=== PATIENT | female | born 1990 | race Caucasian/White ===

== ENCOUNTER 2016-09-07 16:38 | Emergency (ER) | payer MEDICAID ==
[~2016-09-07] VITALS: Ht 154.9 cm; Wt 70.3 kg
[~2016-09-07 16:38] MED LIST: ACET-2869 PO; ACET1TAB93 PO
[2016-09-07] MEDS ORDERED: ONDANSETRON 4 MG/2 ML VIAL IVP ONE (16:50)
[2016-09-07] MEDS ORDERED: NACL 0.9% 1,000 ML IV SCH (16:50)
[2016-09-07 16:54] VITALS: BP 132/99
--- NOTE | 2016-09-07 16:54 | NUR ---
PT PRESENTS TO ER FOR EVALUATION OF LOWER ABDOMINAL PAIN R/T INCISION, S/P 08/16/16. PT ALSO C/O SOB AND LOWER ABDOMEN TUGGING. DENIES N/V/D; SKIN IS PINK/WARM/DRY; AAOX4 WITH EVEN AND STEADY GAIT; LUNGS CLEAR BL; HR EVEN AND REGULAR; PATIENT STATES PAIN OF 8/10 AT THIS TIME; VSS; PATIENT POSITIONED FOR COMFORT; HOB ELEVATED; BEDRAILS UP X2; BED DOWN. ER MD MADE AWARE OF PT STATUS.
--- NOTE | 2016-09-07 17:05 | NUR ---
INSERTED IV CATH NO 20G LAC . PT TOLERATED PROCEDURE WELL/. IV PATENT/INTACT.
[2016-09-07 17:09] LABS: BASOPHILS # (AUTO) 0.2 K/uL (0.00-0.22); BASOPHILS % (AUTO) 1.7 % (0.0-2.0); EOSINOPHILS # (AUTO) 0.4 K/uL (0-0.4); EOSINOPHILS % (AUTO) 3.8 % (0.0-4.0); HEMATOCRIT 41.4 % (36-48); HEMOGLOBIN 13.1 g/dL (12.0-16.0); LYMPHOCYTES # (AUTO) 2.5 K/uL (2.5-16.5); LYMPHOCYTES % (AUTO) 26.1 % (20.5-51.1); MEAN CORPUSCULAR HEMOGLOBIN 26 pg (27-31); MEAN CORPUSCULAR HGB CONC 32 g/dL (33-37); MEAN CORPUSCULAR VOLUME 82 fL (80-94); MONOCYTES # (AUTO) 0.5 K/uL (0.8-1.0); MONOCYTES % (AUTO) 5.1 % (1.7-9.3); NEUTROPHILS # (AUTO) 6.1 K/uL (1.8-7.7); NEUTROPHILS % (AUTO) 63.3 % (42.2-75.2); PLATELET COUNT (AUTO) 410 K/uL (140-450); RED BLOOD CELL COUNT(AUTO) 5.04 MIL/uL (4.20-5.40); RED CELL DISTRIBUTION WIDTH 13.7 % (11.6-13.7); WHITE BLOOD COUNT (AUTO) 9.7 K/uL (4.8-10.8)
[2016-09-07 17:20] LABS: ANION GAP 14.4 (8-16); CALCIUM 8.9 mg/dL (8.5-10.1); CREATININE 0.8 mg/dL (0.6-1.3); POTASSIUM 4.4 mmol/L (3.5-5.1)
[2016-09-07 17:25] LABS: ALBUMIN 3.5 g/dL (3.4-5.0); TOTAL BILIRUBIN 0.2 mg/dL (0.0-1.0); TOTAL PROTEIN, SERUM 7.9 g/dL (6.4-8.2)
[2016-09-07] MEDS ORDERED: HYDROmorphone 1 MG/ML AMP IVP ONE (18:10)
--- NOTE | 2016-09-07 18:10 | NUR ---
PT C/O ABD PAIN 09/15 ; NOTIFIED ER MD DR MEDINA. DILAUDID 1MG IV ORDERED.
--- NOTE | 2016-09-07 18:15 | NUR ---
ADMINISTERED DILAUDID 1MG IV LAC FOR PAIN.
--- NOTE | 2016-09-07 18:18 | NUR ---
PT STATED STAPLE C SECTION SURGERY HAVE TO REMOVE08/20/16 BUT PT DID NOT CAME TO [facility] TO REMOVE STAPLE.
--- NOTE | 2016-09-07 18:30 | NUR ---
ABDOMINAL PAIN 3/10
[2016-09-07 18:31] LABS: APPEARANCE,URINE CLEAR (CLEAR); BLOOD, URINE NEGATIVE (NEGATIVE); COLOR,URINE YELLOW (YELLOW); LEUKOCYTE ESTERASE ,URINE NEGATIVE (NEGATIVE); NITRITE, URINE NEGATIVE (NEGATIVE); PROTEIN,URINE TRACE (NEGATIVE); UGLUCOSE NEGATIVE (NEGATIVE); UROBILINOGEN,URINE 0.2 EU/dL (0.2 - 1)
[2016-09-07 18:32] LABS: BILIRUBIN,URINE NEGATIVE (NEGATIVE)
[2016-09-07 18:34] LABS: BACTERIA,URINE FEW /HPF (None Seen); MUCUS,URINE 3+ /LPF (None Seen); RBC,URINE 0-3 /HPF (0-5); WBC,URINE 0-3 /HPF (0-5)
--- NOTE | 2016-09-07 18:45 | NUR ---
ER MD DR MEDINA REEVALUATING PT AT BEDSIDE.
--- NOTE | 2016-09-07 18:51 | NUR ---
WOUND CARE DONE BY JUANIS RANGEL.
--- NOTE | 2016-09-07 18:52 | NUR ---
IV removed, catheter intact and site benign. Applied folded 4x4 gauze and tape to stop bleeding.
[2016-09-07] MEDS ORDERED: BACITRACIN OINT 500 UNITS/GM PKT TP ONE (18:57)
[2016-09-07 19:06] VITALS: BP 102/90
--- NOTE | 2016-09-07 19:06 | NUR ---
Patient discharged with v/s stable. Written and verbal after care instructions given and explained. Patient alert, oriented and verbalized understanding of instructions. Ambulatory with steady gait. All questions addressed prior to discharge. ID band removed. Patient advised to follow up with PMD. Rx of KEFLEX & NORCO given. Patient educated on indication of medication including possible reaction and side effects. Opportunity to ask questions provided and answered.
--- NOTE | 2016-09-11 11:18 | NUR ---
MAX; STATRED IV 0.9 NSS 100ML WIDE OPEN AT 17.04 PM 09/07/16. END IV 0.9% NSS 1000 ML AT 1850 PM. 09/07/16
== END 2016-09-07 19:06 | disposition home or self-care (01) ==
LOC: MED 16:38
DX: O90.89 Other complications of the puerperium, not elsewhere classified (principal); T81.89XA Other complications of procedures, not elsewhere classified, initial encounter; L03.311 Cellulitis of abdominal wall; Z88.1 Allergy status to other antibiotic agents
CPT/HCPCS: 36415; 76700; 80053; 81001; 81025; 82150; 83690; 85025; 96361; 96374; 96375; 99285; J1170; J2405; J7030; Q0092

== ENCOUNTER 2017-02-13 22:44 | Emergency (ER) | payer OTHER ==
[~2017-02-13] VITALS: Ht 157.5 cm; Wt 69.4 kg
[~2017-02-13 22:44] MED LIST changes: +BUPR8TAB3 SL
[2017-02-13 22:48] VITALS: BP 139/82
--- NOTE | 2017-02-13 23:05 | NUR ---
PT TAKEN TO BED 7
--- NOTE | 2017-02-13 23:05 | NUR ---
Dr. Rendon evaluating patient at bedside.
--- NOTE | 2017-02-13 23:06 | NUR ---
PATIENT IS A 26 Y/O FEMALE WHO PRESENTS TO THE ED C/O DIZZINESS AND HEADACHE. PT STATES, "I HAVEN'T BEEN FEELING GOOD RECENTLY AND MY HEAD HURTS." PT REPORTS 6/10 SHARP HEADACHE PAIN THAT DOES NOT RADIATE. PT DENIES CP, REPORTS SOB, LUNG SOUNDS CLEAR BL, REPORTS NAUSEA DENIES VOMITING/DIARRHEA. PT AAOX4, RR EVEN/UNLABORED. PT REPOSITIONED FOR COMFORT, BED IN LOWEST POSITION. ER MD VILLAGRAN SECIST NOTIFIED. WILL CONTINUE TO MONITOR.
[2017-02-13] MEDS ORDERED: ACETAMINOPHEN EXTRA STRENGTH 500 MG TAB PO ONE (23:15)
[2017-02-13] MEDS ORDERED: METOCLOPRAMIDE 10 MG/2 ML INJ VIAL IVP ONE (23:15)
[2017-02-13] MEDS ORDERED: NACL 0.9% 1,000 ML IV ONE (23:15)
--- NOTE | 2017-02-13 23:26 | NUR ---
PT TAKEN TO CT
--- NOTE | 2017-02-13 23:34 | NUR ---
PT RETURN FROM CT
--- NOTE | 2017-02-14 00:21 | NUR ---
Ultrasound at bedside.
[2017-02-14 00:25] LABS: HEMATOCRIT 30.1 % (36-48); HEMOGLOBIN 9.8 g/dL (12.0-16.0); MEAN CORPUSCULAR HEMOGLOBIN 27 pg (27-31); MEAN CORPUSCULAR HGB CONC 33 g/dL (33-37); MEAN CORPUSCULAR VOLUME 82 fL (80-94); PLATELET COUNT (AUTO) 185 K/uL (140-450); RED BLOOD CELL COUNT(AUTO) 3.65 MIL/uL (4.20-5.40); RED CELL DISTRIBUTION WIDTH 14.5 % (11.6-13.7); WHITE BLOOD COUNT (AUTO) 6.8 K/uL (4.8-10.8)
[2017-02-14 00:27] LABS: EOSINOPHILS % (MANUAL) 5 % (0-4); LYMPHOCYTES % (MANUAL) 35 % (20-46); MONOCYTES % (MANUAL) 6 % (5-12)
[2017-02-14 00:29] LABS: ANION GAP 9.5 (8-16); CARBON DIOXIDE 25.2 mmol/L (21-32); CREATININE 0.6 mg/dL (0.6-1.3); POTASSIUM 3.7 mmol/L (3.5-5.1)
[2017-02-14 00:34] LABS: ALBUMIN 2.9 g/dL (3.4-5.0); TOTAL BILIRUBIN 0.1 mg/dL (0.0-1.0)
[2017-02-14 01:02] LABS: BILIRUBIN,URINE NEGATIVE (NEGATIVE); BLOOD, URINE NEGATIVE (NEGATIVE); COLOR,URINE YELLOW (YELLOW); LEUKOCYTE ESTERASE ,URINE NEGATIVE (NEGATIVE); NITRITE, URINE NEGATIVE (NEGATIVE); UGLUCOSE NEGATIVE (NEGATIVE)
[2017-02-14 01:07] LABS: APPEARANCE,URINE SLIGHTLY HAZY (CLEAR)
[2017-02-14 01:11] LABS: BARBITURATE, URINE NEGATIVE ng/ml (NEG <=200); BENZODIAZEPINE, URINE NEGATIVE ng/mL (NEG <=200); CANNABINOID, URINE NEGATIVE ng/mL (NEG <=50); COCAINE, URINE NEGATIVE ng/mL (NEG <=300); OPIATE, URINE NEGATIVE ng/mL (NEG <=2000); PHENCYCLIDINE SCREEN,URINE NEGATIVE ng/mL (NEG <=25)
[2017-02-14 01:14] LABS: RBC,URINE 0-5 (RARE) /HPF (0-5); WBC,URINE 0-5 (RARE) /HPF (0-5)
--- NOTE | 2017-02-14 01:30 | NUR ---
PATIENT RESTING AT THIS TIME. NO SIGNS OF DISTRESS.
--- NOTE | 2017-02-14 01:45 | NUR ---
IV removed, catheter intact and site benign. Applied folded 4x4 gauze and tape to stop bleeding.
[2017-02-14 01:58] VITALS: BP 129/85
--- NOTE | 2017-02-14 01:58 | NUR ---
Patient discharged with v/s stable. Written and verbal after care instructions given and explained. Patient verbalized understanding. Ambulatory with steady gait. All questions addressed prior to discharge. Advised to follow up with PMD.
== END 2017-02-14 01:58 | disposition home or self-care (01) ==
LOC: MED 22:44
DX: O99.011 Anemia complicating pregnancy, first trimester (principal); D64.9 Anemia, unspecified; Z3A.09 9 weeks gestation of pregnancy; F17.200 Nicotine dependence, unspecified, uncomplicated; Z88.8 Allergy status to other drugs, medicaments and biological substances
CPT/HCPCS: 36415; 70450; 76801; 80053; 80305; 81001; 81025; 83690; 84702; 85025; 86900; 86901; 96360; 99285; J7030; Q0092; J2765

== ENCOUNTER 2017-02-21 19:08 | Emergency (ER) | payer OTHER ==
[~2017-02-21] VITALS: Ht 157.5 cm; Wt 81.6 kg
[2017-02-21 19:30] VITALS: BP 119/51
--- NOTE | 2017-02-21 19:41 | NUR ---
PT TAKEN TO BED 12
--- NOTE | 2017-02-21 19:42 | NUR ---
26/F CAME IN WITH C/O 10/10 HEADACHE, CONSTANT X 2 WEEKS[address] PT STATES HEAD CT WAS DONE FROM ER FEW WEEKS AGO AND IT WAS NEGATIVE. DENIES TRAUMA/INJURY, DENIES N/V, VISUAL DISTURBANCES, DENIES FEVER/CHILLS, SOB/COUGH, CHEST PAIN. STATES SHE IS 10 WEEKS , NO OBGYN. PT REPORTS SHE TOOK EXCEDRIN AND TYLENOL FOR HEADACHE BUT NO RELIEF OF SYMPTOMS.
[2017-02-21 20:50] LABS: APPEARANCE,URINE HAZY (CLEAR); BILIRUBIN,URINE NEGATIVE (NEGATIVE); BLOOD, URINE NEGATIVE (NEGATIVE); COLOR,URINE YELLOW (YELLOW); LEUKOCYTE ESTERASE ,URINE NEGATIVE (NEGATIVE); NITRITE, URINE NEGATIVE (NEGATIVE); PH,URINE 7.5 (5.0-9.0); UGLUCOSE NEGATIVE (NEGATIVE)
--- NOTE | 2017-02-21 21:07 | NUR ---
PATIENT ELOPED FROM FACILITY. DISCHARGE INSTRUCTIONS NOT GIVEN TO PATIENT. DR. BARNES NOTIFIED.
[2017-02-21 21:12] LABS: RBC,URINE NONE SEEN /HPF (0-5); WBC,URINE 0-5 (RARE) /HPF (0-5)
== END 2017-02-21 21:07 | disposition left against medical advice (07) ==
LOC: MED 19:08
DX: O26.891 Other specified pregnancy related conditions, first trimester (principal); R51 Headache; Z53.21 Procedure and treatment not carried out due to patient leaving prior to being seen by health care provider; Z3A.10 10 weeks gestation of pregnancy
CPT/HCPCS: 81001; 99281

== ENCOUNTER 2017-03-11 13:31 | Emergency (ER) | payer OTHER ==
[~2017-03-11] VITALS: Ht 157.5 cm; Wt 69.9 kg
[2017-03-11 13:55] VITALS: BP 122/66
--- NOTE | 2017-03-11 14:02 | NUR ---
UA SPECIMEN COLLECTED. PT SENT BACK INTO LOBBY TO WAIT FOR BED.
--- NOTE | 2017-03-11 17:36 | NUR ---
PATIENT LEFT WITHOUT BEING SEEN BY DR. PITTS. NO FURTHER CARE PROVIDED FOR PATIENT.
== END 2017-03-11 17:36 | disposition left against medical advice (07) ==
LOC: MED 13:31
DX: Z53.21 Procedure and treatment not carried out due to patient leaving prior to being seen by health care provider (principal)

== ENCOUNTER 2017-03-26 12:16 | Emergency (ER) | payer MEDICAID, OTHER ==
[~2017-03-26] VITALS: Ht 152.4 cm; Wt 74.8 kg
[2017-03-26 12:28] VITALS: BP 116/64
--- NOTE | 2017-03-26 12:39 | NUR ---
PT TAKEN TO BED 3.
--- NOTE | 2017-03-26 12:47 | NUR ---
26F BIB SELF C/O INTERMITTENT CHEST PAIN "ALL OVER" CHEST, RADIATES TO BL ARMS, BUT MORE TO LEFT ARM, PRESSURE, 2/10 X 4 WEEKS. PT STATES WAS "JUST RESTING" WHEN CHEST PAIN STARTED. PT STATES HAS BEEN SEEN BY ER'S AND PMD THIS MONTH, BUT TOLD TO FOLLOW UP WITH LANGUAGE INTERPRETER. PT AA&OX4, PERRLA, BL LUNG SOUNDS CLEAR, RR EVEN/UNLABORED, SKIN IS WARM/DRY/INTACT; PT STATES NO N/V/D AT THIS TIME; PT STATES 15 WEEKS AT THIS TIME A1. PT PLACED ON MONITOR, RESTING IN BED WITH HOB ELEVATED AND IN LOWEST POSITION; POSITIONED FOR COMFORT; ER MD MADE AWARE OF STATUS. WILL CONTINUE TO MONITOR.
--- NOTE | 2017-03-26 12:56 | NUR ---
ER MD DR. BARNES EVALUATING PT AT BEDSIDE.
--- NOTE | 2017-03-26 13:28 | NUR ---
Pt moved to bed 12.
[2017-03-26 13:32] LABS: BASOPHILS # (AUTO) 0.1 K/uL (0.00-0.22); BASOPHILS % (AUTO) 1.8 % (0.0-2.0); EOSINOPHILS # (AUTO) 0.2 K/uL (0-0.4); EOSINOPHILS % (AUTO) 3.1 % (0.0-4.0); HEMATOCRIT 29.3 % (36-48); HEMOGLOBIN 9.4 g/dL (12.0-16.0); LYMPHOCYTES # (AUTO) 2.1 K/uL (2.5-16.5); LYMPHOCYTES % (AUTO) 29.6 % (20.5-51.1); MEAN CORPUSCULAR HEMOGLOBIN 27 pg (27-31); MEAN CORPUSCULAR HGB CONC 32 g/dL (33-37); MEAN CORPUSCULAR VOLUME 83 fL (80-94); MONOCYTES # (AUTO) 0.4 K/uL (0.8-1.0); MONOCYTES % (AUTO) 5.5 % (1.7-9.3); NEUTROPHILS # (AUTO) 4.1 K/uL (1.8-7.7); PLATELET COUNT (AUTO) 208 K/uL (140-450); RED BLOOD CELL COUNT(AUTO) 3.54 MIL/uL (4.20-5.40); RED CELL DISTRIBUTION WIDTH 14.8 % (11.6-13.7); WHITE BLOOD COUNT (AUTO) 6.9 K/uL (4.8-10.8)
[2017-03-26 14:03] LABS: PROTHROMBIN TIME 9.5 secs (10.8-13.4)
[2017-03-26 14:07] LABS: ALBUMIN 2.7 g/dL (3.4-5.0); ANION GAP 14.1 (8-16); CARBON DIOXIDE 26.4 mmol/L (21-32); CREATININE 0.5 mg/dL (0.6-1.3); POTASSIUM 4.5 mmol/L (3.5-5.1); TOTAL BILIRUBIN 0.1 mg/dL (0.0-1.0)
[2017-03-26] MEDS ORDERED: LORazepam 1 MG TAB PO ONE (14:45)
[2017-03-26 15:23] LABS: BARBITURATE, URINE NEG. ng/ml (NEG <=200); BENZODIAZEPINE, URINE NEG. ng/mL (NEG <=200); CANNABINOID, URINE NEG. ng/mL (NEG <=50); COCAINE, URINE NEG. ng/mL (NEG <=300); OPIATE, URINE NEG. ng/mL (NEG <=2000); PHENCYCLIDINE SCREEN,URINE NEG. ng/mL (NEG <=25)
[2017-03-26 15:30] VITALS: BP 98/39
--- NOTE | 2017-03-26 15:30 | NUR ---
pt stated " if don't order CT, I WILL NOT SIGN ANTTHING AND I WILL LEAVE NOW. PATIENT ELOPED FROM FACILITY. DISCHARGE INSTRUCTIONS NOT GIVEN TO PATIENT. NOTIFIED. Addendum: 03/26/17 at 1539 by [facility] PT DENIES PAIN AT THIS TIME.
== END 2017-03-26 15:30 | disposition left against medical advice (07) ==
LOC: MED 12:16
DX: O26.892 Other specified pregnancy related conditions, second trimester (principal); R07.9 Chest pain, unspecified; F17.200 Nicotine dependence, unspecified, uncomplicated; Z88.8 Allergy status to other drugs, medicaments and biological substances; Z3A.15 15 weeks gestation of pregnancy
CPT/HCPCS: 36415; 71045; 80053; 80305; 81025; 82550; 84484; 85025; 85379; 85610; 85651; 85730; 86140; 99285; Q0092

== ENCOUNTER 2017-07-27 00:30 | Emergency (ER) | payer MEDICAID ==
[~2017-07-27] VITALS: Ht 160 cm; Wt 90.8 kg
[2017-07-27 00:35] VITALS: BP 121/69
[2017-07-27] MEDS ORDERED: ACETAMINOPHEN EXTRA STRENGTH 500 MG TAB PO ONE (01:20)
[2017-07-27 03:00] VITALS: BP 101/53
== END 2017-07-27 03:00 | disposition home or self-care (01) ==
LOC: MED 00:30
DX: O26.893 Other specified pregnancy related conditions, third trimester (principal); R51 Headache; R42 Dizziness and giddiness; Z79.899 Other long term (current) drug therapy; Z88.8 Allergy status to other drugs, medicaments and biological substances
CPT/HCPCS: 70450; 99284

== ENCOUNTER 2017-09-24 03:55 | Inpatient (IN) | payer MEDICAID, OTHER ==
[~2017-09-24] VITALS: Ht 154.9 cm; Wt 86.2 kg
--- NOTE | 2017-09-24 04:05 | NUR ---
PT AMBULATED TO BED 8
[2017-09-24 04:10] VITALS: BP 140/81
--- NOTE | 2017-09-24 04:16 | NUR ---
Dr. Carey evaluating patient at bedside.
--- NOTE | 2017-09-24 04:20 | NUR ---
PT SENT TO L&D FOR EVAL PER MD LYNN.
[2017-09-24] MEDS ORDERED: ACETAMINOPHEN EXTRA STRENGTH 500 MG TAB PO ONE (04:25)
[2017-09-24 04:57] LABS: APPEARANCE,URINE CLEAR (CLEAR); BILIRUBIN,URINE NEGATIVE (NEGATIVE); BLOOD, URINE NEGATIVE (NEGATIVE); COLOR,URINE YELLOW (YELLOW); UGLUCOSE NEGATIVE (NEGATIVE)
[2017-09-24 04:58] LABS: LEUKOCYTE ESTERASE ,URINE NEGATIVE (NEGATIVE); NITRITE, URINE NEGATIVE (NEGATIVE)
[2017-09-24] MEDS ORDERED: LACTATED RINGERS 1,000 ML IV SCH (05:01)
[2017-09-24] MEDS ORDERED: CITRIC ACID/SODIUM CITRATE 30 ML UDC PO ONE (05:05)
--- NOTE | 2017-09-24 05:10 | NUR ---
PT WILL NOT RETURN TO ER...PT WAS ADMITTED TO L&D.
[2017-09-24 06:13] LABS: BASOPHILS % (AUTO) 0.3 % (0.0-2.0); EOSINOPHILS # (AUTO) 0.1 K/uL (0-0.4); EOSINOPHILS % (AUTO) 1.1 % (0.0-4.0); HEMATOCRIT 36.5 % (36-48); HEMOGLOBIN 11.6 g/dL (12.0-16.0); LYMPHOCYTES # (AUTO) 2.5 K/uL (2.5-16.5); LYMPHOCYTES % (AUTO) 20.7 % (20.5-51.1); MEAN CORPUSCULAR HEMOGLOBIN 26 pg (27-31); MEAN CORPUSCULAR HGB CONC 32 g/dL (33-37); MEAN CORPUSCULAR VOLUME 81.3 fL (80-94); MONOCYTES # (AUTO) 0.7 K/uL (0.8-1.0); MONOCYTES % (AUTO) 5.9 % (1.7-9.3); NEUTROPHILS # (AUTO) 8.5 K/uL (1.8-7.7); PLATELET COUNT (AUTO) 238 K/uL (140-450); RED BLOOD CELL COUNT(AUTO) 4.49 MIL/uL (4.20-5.40); RED CELL DISTRIBUTION WIDTH 15.6 % (11.6-13.7); WHITE BLOOD COUNT (AUTO) 11.8 K/uL (4.8-10.8)
[2017-09-24 06:28] VITALS: BP 125/76
[2017-09-24] MEDS ORDERED: HYDR12.516 PO (06:37)
[2017-09-24 06:40] LABS: BARBITURATE, URINE NEGATIVE ng/ml (NEG <=200); BENZODIAZEPINE, URINE NEGATIVE ng/mL (NEG <=200); CANNABINOID, URINE NEGATIVE ng/mL (NEG <=50); COCAINE, URINE NEGATIVE ng/mL (NEG <=300); OPIATE, URINE NEGATIVE ng/mL (NEG <=2000); PHENCYCLIDINE SCREEN,URINE NEGATIVE ng/mL (NEG <=25)
[2017-09-24] MEDS ORDERED: PREN-546 PO (06:45)
[2017-09-24] MEDS ORDERED: FERR-252 PO (06:45)
[2017-09-24] MEDS ORDERED: POTA8TER12 PO (06:45)
[2017-09-24 09:26] LABS: ANION GAP 15.7 (8-16); CARBON DIOXIDE 24.5 mmol/L (21-32); POTASSIUM 4.2 mmol/L (3.5-5.1)
[2017-09-24 09:27] LABS: ALBUMIN 2.8 g/dL (3.4-5.0); CREATININE 0.7 mg/dL (0.6-1.3); TOTAL BILIRUBIN 0.1 mg/dL (0.0-1.0)
[2017-09-25 09:28] LABS: HEPATITIS B SURFACE ANTIGEN Negative (Negative)
== END 2017-09-24 07:15 | disposition left against medical advice (07) | DRG 566 ==
LOC: MED 03:55 → MLD 04:40 → EDSTATUS 04:47 → OBSVTOIN 05:31
PROVIDERS: ADMIT Obstetrics & Gynecology; ATTEND Obstetrics & Gynecology
DX: O36.8130 Decreased fetal movements, third trimester, not applicable or unspecified (principal); O99.89 Other specified diseases and conditions complicating pregnancy, childbirth and the puerperium; R51 Headache; Z3A.41 41 weeks gestation of pregnancy; O34.219 Maternal care for unspecified type scar from previous cesarean delivery; Z53.21 Procedure and treatment not carried out due to patient leaving prior to being seen by health care provider; Z88.8 Allergy status to other drugs, medicaments and biological substances
CPT/HCPCS: 36415; 76805; 80053; 80305; 81003; 85025; 86592; 86762; 86886; 86900; 86901; 87340; G0378; J0690; J7060; J7120; Q0092

== ENCOUNTER 2017-09-29 22:48 | Emergency (ER) | payer OTHER ==
[~2017-09-29] VITALS: Ht 154.9 cm; Wt 86.2 kg
[~2017-09-29 22:48] MED LIST changes: -ACET-2869 PO; -ACET1TAB93 PO; +FERR-252 PO; +HYDR12.516 PO; +POTA8TER12 PO; +PREN-546 PO
[2017-09-29 22:55] VITALS: BP 142/73
--- NOTE | 2017-09-29 23:02 | NUR ---
Patient ambulated to bed 10. RN evaluating patient at bedside.
--- NOTE | 2017-09-29 23:10 | NUR ---
PATIENT IS A 27 Y/O FEMALE WHO PRESENTS TO THE ED C/O HEADACHE. PT STATES THAT IT HAS BEEN LIKE THIS SINCE SHE WAS AND NOW WORSENING X3 DAYS. PT REPORTS 7/10 POUNDING R HEADACHE PAIN THAT DOES NOT RADIATE. PT DENIES CP, SOB, N/V/D. PT AWAKE AND ALERT, RR EVEN/UNLABORED. PT REPOSITIONED FOR COMFORT, BED IN LOWEST POSITION. ER MD DR. PITTS NOTIFIED. WILL CONTINUE TO MONITOR.
[2017-09-29 23:48] LABS: ANION GAP 16.8 (8-16); CARBON DIOXIDE 23.3 mmol/L (21-32); POTASSIUM 4.1 mmol/L (3.5-5.1)
[2017-09-29 23:55] LABS: CREATININE 0.9 mg/dL (0.6-1.3)
--- NOTE | 2017-09-29 23:56 | NUR ---
Patient returned from CT scan. RN re-evaluating patient at bedside.
[2017-09-30 01:00] VITALS: BP 149/81
== END 2017-09-30 01:00 | disposition home or self-care (01) ==
LOC: MED 22:48
DX: R51 Headache (principal); H57.13 Ocular pain, bilateral; R42 Dizziness and giddiness; N28.9 Disorder of kidney and ureter, unspecified; F17.210 Nicotine dependence, cigarettes, uncomplicated; Z88.1 Allergy status to other antibiotic agents; Z79.899 Other long term (current) drug therapy
CPT/HCPCS: 36415; 71250; 80048; 81025; 99285

== ENCOUNTER 2017-10-05 19:15 | Emergency (ER) | payer OTHER ==
[~2017-10-05] VITALS: Ht 157.5 cm; Wt 94.1 kg
[2017-10-05 19:17] VITALS: BP 142/90
[2017-10-05 19:22] VITALS: BP 142/90
--- NOTE | 2017-10-05 19:30 | NUR ---
TO LOBBY A/W BED, AMBULATORY, EKG DONE , NOTED BY ANIKA
--- NOTE | 2017-10-05 21:41 | NUR ---
PATIENT LEFT WITHOUT BEING SEEN BY DR. Mendez. NO FURTHER CARE PROVIDED FOR PATIENT.
== END 2017-10-05 21:41 | disposition left against medical advice (07) ==
LOC: MED 19:15
DX: R07.89 Other chest pain (principal); Z53.21 Procedure and treatment not carried out due to patient leaving prior to being seen by health care provider
CPT/HCPCS: 93005; 99281

== ENCOUNTER 2017-10-08 23:20 | Emergency (ER) | payer OTHER ==
[~2017-10-08] VITALS: Ht 157.5 cm; Wt 92.2 kg
[2017-10-08 23:25] VITALS: BP 170/81
[2017-10-09] LABS: BASOPHILS # (AUTO) 0.1 K/uL (0.00-0.22); EOSINOPHILS # (AUTO) 0.2 K/uL (0-0.4); HEMATOCRIT 31.7 % (36-48); HEMOGLOBIN 10.1 g/dL (12.0-16.0); LYMPHOCYTES # (AUTO) 3.1 K/uL (2.5-16.5); LYMPHOCYTES % (AUTO) 39.2 % (20.5-51.1); MEAN CORPUSCULAR HEMOGLOBIN 26 pg (27-31); MEAN CORPUSCULAR HGB CONC 32 g/dL (33-37); MEAN CORPUSCULAR VOLUME 80.3 fL (80-94); MONOCYTES # (AUTO) 0.4 K/uL (0.8-1.0); MONOCYTES % (AUTO) 4.8 % (1.7-9.3); NEUTROPHILS # (AUTO) 4.1 K/uL (1.8-7.7); PLATELET COUNT (AUTO) 326 K/uL (140-450); RED BLOOD CELL COUNT(AUTO) 3.94 MIL/uL (4.20-5.40); RED CELL DISTRIBUTION WIDTH 15.1 % (11.6-13.7); WHITE BLOOD COUNT (AUTO) 7.9 K/uL (4.8-10.8)
[2017-10-09 00:15] LABS: ALBUMIN 3.1 g/dL (3.4-5.0); ANION GAP 10.7 (8-16); CARBON DIOXIDE 30.2 mmol/L (21-32); CREATININE 0.8 mg/dL (0.6-1.3); POTASSIUM 3.9 mmol/L (3.5-5.1); TOTAL BILIRUBIN 0.2 mg/dL (0.0-1.0)
[2017-10-09] MEDS ORDERED: ONDANSETRON 4 MG/2 ML VIAL IVP ONE (02:00)
[2017-10-09] MEDS ORDERED: ONDANSETRON 4 MG/2 ML VIAL ONE (02:03)
[2017-10-09 04:02] VITALS: BP 158/78
== END 2017-10-09 04:03 | disposition home or self-care (01) ==
LOC: MED 23:20
DX: O90.89 Other complications of the puerperium, not elsewhere classified (principal); R07.9 Chest pain, unspecified; R06.02 Shortness of breath; M79.603 Pain in arm, unspecified; N28.9 Disorder of kidney and ureter, unspecified; F17.210 Nicotine dependence, cigarettes, uncomplicated; Z79.899 Other long term (current) drug therapy
CPT/HCPCS: 36415; 71045; 71275; 80053; 81002; 81025; 83690; 83880; 85025; 85379; 96374; 99285; J2405; Q0092; Q9967

== ENCOUNTER 2017-10-16 01:31 | Emergency (ER) | payer OTHER ==
[~2017-10-16] VITALS: Ht 157.5 cm; Wt 89.8 kg
[2017-10-16 01:37] VITALS: BP 110/78
--- NOTE | 2017-10-16 01:40 | NUR ---
TO LOBBY A/W BED, AMBULATORY, VSS ERMD NOTED
--- NOTE | 2017-10-16 01:51 | NUR ---
PT PRESENT TO ED WITH HTN AND MIGRAINE PETERSEN. PT HAS HX OF HTN AND MIGRAINS. PTS BP IS 115/73 AT THIS TIME. PETERSEN PAIN 8/10 WITH LIGHT SENSITIVITY. A&O4. PT DENIES DIZZINESS, BLURRED VISION, OR ALOC. POSITIONED IN BED FOR COMFORT. SIDE RAILS UP. VSS. ER MD AWARE. CONTINUE TO MONITOR.
--- NOTE | 2017-10-16 01:51 | NUR ---
PT AMBULATED TO BED 9
[2017-10-16] MEDS ORDERED: METOCLOPRAMIDE 10 MG/2 ML INJ VIAL IM ONE (04:05)
[2017-10-16] MEDS ORDERED: ACETAMINOPHEN EXTRA STRENGTH 500 MG TAB PO ONE (04:05)
--- NOTE | 2017-10-16 04:30 | NUR ---
PT REFUSED REGLAN. DR JIN NOTIFIED.
[2017-10-16 04:31] LABS: BILIRUBIN,URINE NEGATIVE (NEGATIVE); BLOOD, URINE LARGE (NEGATIVE); NITRITE, URINE NEGATIVE (NEGATIVE); PH,URINE 5.5 (5.0-9.0); UGLUCOSE NEGATIVE (NEGATIVE)
[2017-10-16 04:41] LABS: APPEARANCE,URINE CLOUDY (CLEAR); COLOR,URINE YELLOW (YELLOW); LEUKOCYTE ESTERASE ,URINE 4+ (NEGATIVE)
[2017-10-16 04:42] LABS: RBC,URINE TOO NUMEROUS TO COUN /HPF (0-5); WBC,URINE TOO MANY TO COUNT /HPF (0-5)
[2017-10-16 05:36] VITALS: BP 100/67
--- NOTE | 2017-10-16 05:37 | NUR ---
Patient discharged with v/s stable. Written and verbal after care instructions given and explained. Patient alert, oriented and verbalized understanding of instructions. Ambulatory with steady gait. All questions addressed prior to discharge. ID band removed. Patient advised to follow up with PMD. Rx of ACETAMINOPHEN 500MG Q6PRN given. Patient educated on indication of medication including possible reaction and side effects. Opportunity to ask questions provided and answered.
== END 2017-10-16 05:25 | disposition home or self-care (01) ==
LOC: MED 01:31
DX: R03.0 Elevated blood-pressure reading, without diagnosis of hypertension (principal); Z79.899 Other long term (current) drug therapy
CPT/HCPCS: 81001; 81025; 87086; 99284; J2765

== ENCOUNTER 2017-10-27 22:35 | Emergency (ER) | payer OTHER ==
[~2017-10-27] VITALS: Ht 157.5 cm; Wt 81.6 kg
[2017-10-27 22:40] VITALS: BP 122/79
--- NOTE | 2017-10-27 22:43 | NUR ---
TO BED # 3 AMBULATORY, REPORT GIVEN TO LEYLA RODRIGUEZ
--- NOTE | 2017-10-27 22:43 | NUR ---
PT PRESENTS TO ED WITH LEFT NECK, SHOULDER AND UPPER ARM PAIN x1 WK. PT STATES SHE WAS DX WITH A BLOOT CLOT IN HER LEFT UPPER ARM X1 WK AGO AND IS CURRENTLY ON HOME MEDS FOR TREATMENT. PT STATES SHE HAS NOT FINISHED THE HOME MEDS. C/O 8/10 LEFT NECK, LEFT SHOULDER, AND LEFT UPPER ARM PAIN. NO CHEST PAIN, NO SOB OR DYSPNEA. CMS INTACT BILAT LIMBS. PT ALSO STATES HAVING DIZZINESS WITH POSITION CHANGE. INSTRUCTED PT ON SLOW POSTITION CHANGE AND SAFETY. VSS. ER MD AWARE. CONTINUE TO MONITOR.
--- NOTE | 2017-10-27 23:25 | NUR ---
X-Ray at bedside.
--- NOTE | 2017-10-28 00:20 | NUR ---
Patient appears to be resting comfortably in bed. Vital Signs within normal limits. Respirations even and unlabored.
[2017-10-28 00:38] VITALS: BP 115/62
== END 2017-10-28 00:35 | disposition home or self-care (01) ==
LOC: MED 22:35
DX: F41.0 Panic disorder [episodic paroxysmal anxiety] (principal); Z79.899 Other long term (current) drug therapy; Z86.73 Personal history of transient ischemic attack (TIA), and cerebral infarction without residual deficits
CPT/HCPCS: 71045; 99284

== ENCOUNTER 2017-11-11 23:48 | Emergency (ER) | payer OTHER ==
[~2017-11-11] VITALS: Ht 157.5 cm; Wt 86.2 kg
[2017-11-11 23:50] VITALS: BP 112/73
--- NOTE | 2017-11-12 00:31 | NUR ---
TO ER BED 3
--- NOTE | 2017-11-12 00:35 | NUR ---
27/F CAME IN WITH FAMILY/FRIEND, C/O THROBBING POSTERIOR UPPER THIGH PAIN, RADIATING MEDIALLY, X2 HRS. PT STATED SHE WOKE UP WITH THE PAIN. PT DENIES TRAUMA, FEVER, N/V/D. SKIN INTACT, PINK, WARM, DRY, NO OBVIOUS ABNORMALITY NOTED, CAP REFILL<3s. AOX4, GCS 15, AMBULATORY. HX HTN RX LISINOPRIL, HCTZ, TOOK TYLENOL WITH NO RELIEF
[2017-11-12] MEDS ORDERED: KETOROLAC 30 MG/ML VIAL IM ONE (01:20)
[2017-11-12] MEDS ORDERED: KETOROLAC 60 MG/2 ML VIAL IM ONE (01:34)
--- NOTE | 2017-11-12 02:00 | NUR ---
US TECH AT BEDSIDE
--- NOTE | 2017-11-12 02:40 | NUR ---
ER AT BEDSIDE
[2017-11-12 02:48] VITALS: BP 131/70
--- NOTE | 2017-11-12 02:48 | NUR ---
PT REFUSED TO SIGN DISCHARGE PAPERWORK.
--- NOTE | 2017-11-12 02:48 | NUR ---
PT STATED, "I HAVE A COUGH, DOCTOR WON'T DO A CT SCAN, WHAT IF I ." EDUCATED THAT PT HAS STABLE VS, INSTRUCTED TO FOLLOW UP WITH PCP, PROVIDED PT WITH PCP REFERRAL.
--- NOTE | 2017-11-12 02:49 | NUR ---
FOUND ON PT'S BED, PT'S DISCHARGE PAPERWORK AND RX TORN APART.
== END 2017-11-12 02:48 | disposition home or self-care (01) ==
LOC: MED 23:48
DX: M79.1 Myalgia (principal); I10 Essential (primary) hypertension; F17.210 Nicotine dependence, cigarettes, uncomplicated; Z79.899 Other long term (current) drug therapy; Z86.73 Personal history of transient ischemic attack (TIA), and cerebral infarction without residual deficits
CPT/HCPCS: 93971; 96372; 99284; J1885; Q0092

== ENCOUNTER 2018-05-18 02:00 | Emergency (ER) | payer OTHER ==
[~2018-05-18] VITALS: Ht 157.5 cm; Wt 105.7 kg
[2018-05-18 02:07] VITALS: BP 129/89
--- NOTE | 2018-05-18 02:10 | NUR ---
PT AMBULATED TO BED 3 WITH VSS.
--- NOTE | 2018-05-18 02:10 | NUR ---
PT PRESENTS TO ED C/O DIZZINESS AND LOW BP. HX HTN. BP 134/78. NO N/V. NO ALOC. VSS. POSITIONED IN BED WITH HOB ELEVATED FOR COMFORT. ER MD AWARE. CONTINUE TO MONITOR.
[2018-05-18] MEDS ORDERED: LISI-420 PO (02:13)
--- NOTE | 2018-05-18 02:30 | NUR ---
ORTHOSTATIC VS' TAKEN AND GIVEN TO DR WILKINS FOR EVALUATION. lAYING FLAT 88/63 SITTING 84/71 STANDING 108/74 CONTINUE TO MONITOR. C/O DIZZINESS WITH POSITION CHANGE.
[2018-05-18] MEDS ORDERED: NACL 0.9% 1,000 ML IV ONE (02:40)
[2018-05-18 03:27] VITALS: BP 128/77
== END 2018-05-18 03:27 | disposition home or self-care (01) ==
LOC: MED 02:00
DX: R53.1 Weakness (principal); R42 Dizziness and giddiness; I10 Essential (primary) hypertension; Z86.73 Personal history of transient ischemic attack (TIA), and cerebral infarction without residual deficits; Z79.899 Other long term (current) drug therapy; Z88.1 Allergy status to other antibiotic agents; Z88.8 Allergy status to other drugs, medicaments and biological substances
CPT/HCPCS: 81002; 81025; 96360; 99283; J7030

== ENCOUNTER 2018-06-02 20:33 | Emergency (ER) | payer OTHER ==
[~2018-06-02] VITALS: Ht 157.5 cm; Wt 86.2 kg
[~2018-06-02 20:33] MED LIST changes: -BUPR8TAB3 SL; -FERR-252 PO; +LISI-420 PO; -PREN-546 PO
[2018-06-02 20:40] VITALS: BP 130/71
--- NOTE | 2018-06-02 20:42 | NUR ---
TO LOBBY A/W BED, AMB, EKG DONE NSR NOTED BY ANIKA
--- NOTE | 2018-06-02 21:48 | NUR ---
PT AMBULATED TO BED 6.
--- NOTE | 2018-06-02 22:05 | NUR ---
27 YO F BIB SELF CO 6/10 CHEST PAIN X 3 HOURS. PT REPORTS FEELINGS OF TIGHTNESS WITH RADIATION TO HER SHOULDERS AND TINGLING DOWN HER LEFT ARM. DENIES SOB, NV, DIZZINESS. EKG DONE IN TRIAGE, ERMD MADE AWARE. --PMH: CARDIOMYOPATHY, VALVE REGURGITATION --RX: HYDROCHLOROTHIAZIDE 10 MG PT POSITIONED FOR COMFORT. HOB ELEVATED. SIDE RAIL UP X 1. BED IN LOWEST POSITION. VSS. NO APPARENT DISTRESS AT THIS TIME.
--- NOTE | 2018-06-02 22:57 | NUR ---
Dr. Varghese evaluating patient at bedside.
[2018-06-02] MEDS ORDERED: KETOROLAC 60 MG/2 ML VIAL IM ONE (23:20)
[2018-06-02 23:39] VITALS: BP 113/66
== END 2018-06-02 23:39 | disposition home or self-care (01) ==
LOC: MED 20:33
DX: R07.89 Other chest pain (principal); R51 Headache; R94.31 Abnormal electrocardiogram [ECG] [EKG]; I11.9 Hypertensive heart disease without heart failure; I43 Cardiomyopathy in diseases classified elsewhere; F17.200 Nicotine dependence, unspecified, uncomplicated; Z86.73 Personal history of transient ischemic attack (TIA), and cerebral infarction without residual deficits; Z88.1 Allergy status to other antibiotic agents; Z88.8 Allergy status to other drugs, medicaments and biological substances; Z79.899 Other long term (current) drug therapy
CPT/HCPCS: 71045; 93005; 96372; 99283; J1885

== ENCOUNTER 2018-06-20 02:49 | Emergency (ER) | payer OTHER ==
[~2018-06-20] VITALS: Ht 154.9 cm; Wt 86.2 kg
[2018-06-20 03:04] VITALS: BP 134/90
--- NOTE | 2018-06-20 03:10 | NUR ---
PT PRESENTS TO ED WITH C/O SOB, VAGINAL ITCHING, AND R LEG PAIN X 3 DAYS. LUNG SOUNDS CLEAR TO ASCULTATION. PT REPORTS THICK, WHITE, DISCHARGE. NO OBVIOUS INJURY OR DEFORMITY NOTED TO R LEG. CMS INTACT. PT PLACED INTO BED, PENDING MD AYERS.
--- NOTE | 2018-06-20 03:50 | NUR ---
EKG PERFORMED AT BEDSIDE
[2018-06-20 04:05] LABS: BASOPHILS # (AUTO) 0.3 K/uL (0.00-0.22); BASOPHILS % (AUTO) 2.7 % (0.0-2.0); EOSINOPHILS # (AUTO) 0.3 K/uL (0-0.4); EOSINOPHILS % (AUTO) 2.8 % (0.0-4.0); HEMATOCRIT 34.3 % (36-48); HEMOGLOBIN 10.8 g/dL (12.0-16.0); LYMPHOCYTES # (AUTO) 3.1 K/uL (2.5-16.5); LYMPHOCYTES % (AUTO) 29.3 % (20.5-51.1); MEAN CORPUSCULAR HEMOGLOBIN 23 pg (27-31); MEAN CORPUSCULAR HGB CONC 31 g/dL (33-37); MEAN CORPUSCULAR VOLUME 73.2 fL (80-94); MONOCYTES # (AUTO) 0.5 K/uL (0.8-1.0); NEUTROPHILS # (AUTO) 6.3 K/uL (1.8-7.7); NEUTROPHILS % (AUTO) 60.2 % (42.2-75.2); PLATELET COUNT (AUTO) 259 K/uL (140-450); RED BLOOD CELL COUNT(AUTO) 4.68 MIL/uL (4.20-5.40); RED CELL DISTRIBUTION WIDTH 17.1 % (11.6-13.7); WHITE BLOOD COUNT (AUTO) 10.5 K/uL (4.8-10.8)
[2018-06-20 04:22] LABS: ANION GAP 8.7 (8-16); CARBON DIOXIDE 29.5 mmol/L (21-32); CREATININE 0.8 mg/dL (0.6-1.3); POTASSIUM 4.2 mmol/L (3.5-5.1); TOTAL BILIRUBIN 0.1 mg/dL (0.0-1.0)
--- NOTE | 2018-06-20 07:00 | NUR ---
Patient discharged with v/s stable. Patient acting appropriatly, states 0/10 pain at this time. IV d/c bandage and pressure applied, bleeding controlled; tip intact; sight benign. Written and verbal after care instructions given and explained. Patient verbalized understanding. Ambulatory with steady gait. All questions addressed prior to discharge. Advised to follow up with PMD.
[2018-06-20 07:02] VITALS: BP 129/83
== END 2018-06-20 07:00 | disposition home or self-care (01) ==
LOC: MED 02:49
DX: R06.02 Shortness of breath (principal); I10 Essential (primary) hypertension; Z86.73 Personal history of transient ischemic attack (TIA), and cerebral infarction without residual deficits; Z79.899 Other long term (current) drug therapy; Z88.1 Allergy status to other antibiotic agents; Z88.8 Allergy status to other drugs, medicaments and biological substances
CPT/HCPCS: 36415; 71046; 71275; 80053; 81025; 83735; 84484; 85025; 93005; 93971; 99284; Q0092; Q9967

== ENCOUNTER 2018-06-23 10:52 | Emergency (ER) | payer OTHER ==
[~2018-06-23] VITALS: Ht 154.9 cm; Wt 108.1 kg
[2018-06-23 10:54] VITALS: BP 133/68
--- NOTE | 2018-06-23 11:08 | NUR ---
27 Y FEMALE BIB SELF C/O LT RIB PAIN UNDER LT BREAST RATIADING DOWN LT ARM AT 6/10 AND DESCRIBES PAIN NUMBESS/TINGLING/BURNING X2 HOURS. PT TREATED WITH OXYCODONE WITH NO RELIEF. PT REPORTS SOB, DIZZY. LUNGS CLEAR BILATERALLY. DENIES N/V. PT PLACED ON MONITOR. OXYGEN AT 100% RA. NSR. PT SPEAKING IN FULL COMPLETE SENTENCES. AA0X4. VSS AT THIS TIME. PT STATES SHE IS A SMOKER. BED IS DOWN, LOCKED, BED RAIL X 1, ERMD NOTIFIED. MEDHX:VALVE REGURGITION, HTN RX:HYDROCHLOROTHIAZIDE, POTASSIUM
--- NOTE | 2018-06-23 11:17 | NUR ---
DR MALHOTRA AT BEDSIDE
[2018-06-23 11:32] VITALS: BP 131/65
== END 2018-06-23 11:32 | disposition home or self-care (01) ==
LOC: MED 10:52
DX: R07.89 Other chest pain (principal); R06.02 Shortness of breath; I10 Essential (primary) hypertension; F17.210 Nicotine dependence, cigarettes, uncomplicated; Z88.8 Allergy status to other drugs, medicaments and biological substances; Z79.899 Other long term (current) drug therapy; Z88.1 Allergy status to other antibiotic agents; Z86.79 Personal history of other diseases of the circulatory system
CPT/HCPCS: 93005; 99283

== ENCOUNTER 2018-08-05 21:07 | Emergency (ER) | payer OTHER ==
[~2018-08-05] VITALS: Ht 157.5 cm; Wt 86.2 kg
[2018-08-05 21:27] VITALS: BP 124/84
--- NOTE | 2018-08-05 21:32 | NUR ---
PT AMBULATED TO LOBBY WITH VSS.
--- NOTE | 2018-08-05 22:34 | NUR ---
PT AMBULATED TO ER BED 7
--- NOTE | 2018-08-05 22:45 | NUR ---
28 YO F BIB SELF PRESENTS TO ED C/O SOB/DYSPNEA X 1 WEEK. PT STATES SHE HAS BEEN HAVING SOB WITH DISCOMFORT TO HER LEFT SIDE RIBCAGE THAT RADIATES TO HER LEFT SHOULDER. SHE ALSO REPORTS HX OF "LEAKY VALVES IN HEART". DENIES N/V, COUGH, FEVER/CHILLS. -- LUNGS CTA THROUGHOUT. RESPIRATIONS EVEN, UNLABORED. NO S/SX RESPIRATORY DISTRESS. SP02: 100% @RA. RR 16. VSS. -- SKIN PINK, WARM, DRY. -- PT ALERT, CALM, COOPERATIVE. ANSWERING QUESTIONS APPROPRIATELY. BEHAVIOR APPROPRIATE. PMH-- CHRONIC PAIN, WATER RETENTION RX-- OXYCODONE DAILY, HCTZ DAILY
--- NOTE | 2018-08-05 23:10 | NUR ---
Note undone in EDM - 08/06/18 at 0116 by [facility] XRAY RESULT FINDINGS: No definite focal pneumonia is demonstrated. No pleural effusion. No pneumothorax. Heart is not enlarged. Osseous structures are intact. IMPRESSION: No active pulmonary disease. No significant interval change.
--- NOTE | 2018-08-05 23:13 | NUR ---
RAD BEDSIDE WITH PT
--- NOTE | 2018-08-05 23:15 | NUR ---
XRAY AT BEDSIDE.
--- NOTE | 2018-08-05 23:30 | NUR ---
EMT PERFORMING EKG AT BEDSIDE.
--- NOTE | 2018-08-05 23:30 | NUR ---
XRAY RESULT FINDINGS: No definite focal pneumonia is demonstrated. No pleural effusion. No pneumothorax. Heart is not enlarged. Osseous structures are intact. IMPRESSION: No active pulmonary disease. No significant interval change.
[2018-08-05 23:51] LABS: BASOPHILS # (AUTO) 0.1 K/uL (0.00-0.22); EOSINOPHILS # (AUTO) 0.5 K/uL (0-0.4); EOSINOPHILS % (AUTO) 4.5 % (0.0-4.0); HEMATOCRIT 41.1 % (36-48); LYMPHOCYTES # (AUTO) 4.9 K/uL (2.5-16.5); LYMPHOCYTES % (AUTO) 41.8 % (20.5-51.1); MEAN CORPUSCULAR HEMOGLOBIN 23 pg (27-31); MEAN CORPUSCULAR HGB CONC 32 g/dL (33-37); MEAN CORPUSCULAR VOLUME 73.8 fL (80-94); MONOCYTES # (AUTO) 0.8 K/uL (0.8-1.0); MONOCYTES % (AUTO) 6.5 % (1.7-9.3); NEUTROPHILS # (AUTO) 5.5 K/uL (1.8-7.7); NEUTROPHILS % (AUTO) 46.2 % (42.2-75.2); PLATELET COUNT (AUTO) 310 K/uL (140-450); RED BLOOD CELL COUNT(AUTO) 5.57 MIL/uL (4.20-5.40); RED CELL DISTRIBUTION WIDTH 19.6 % (11.6-13.7); WHITE BLOOD COUNT (AUTO) 11.8 K/uL (4.8-10.8)
[2018-08-06] LABS: ANION GAP 14.8 (8-16); CARBON DIOXIDE 23.2 mmol/L (21-32); CREATININE 0.9 mg/dL (0.6-1.3)
[2018-08-06 00:06] LABS: ALBUMIN 3.3 g/dL (3.4-5.0); TOTAL BILIRUBIN 0.5 mg/dL (0.0-1.0)
[2018-08-06 00:50] VITALS: BP 126/81
== END 2018-08-06 00:50 | disposition home or self-care (01) ==
LOC: MED 21:07
DX: R06.02 Shortness of breath (principal); I10 Essential (primary) hypertension; Z86.73 Personal history of transient ischemic attack (TIA), and cerebral infarction without residual deficits; Z88.1 Allergy status to other antibiotic agents; Z88.8 Allergy status to other drugs, medicaments and biological substances; Z79.899 Other long term (current) drug therapy
CPT/HCPCS: 36415; 71045; 80053; 84484; 85025; 93005; 99284

== ENCOUNTER 2018-08-25 13:43 | Emergency (ER) | payer OTHER ==
[~2018-08-25] VITALS: Ht 154.9 cm; Wt 110.0 kg
--- NOTE | 2018-08-25 14:02 | NUR ---
PT TO ER BED 2
[2018-08-25 14:09] VITALS: BP 135/86
[2018-08-25] MEDS ORDERED: OXYC40TE66 PO (14:24)
--- NOTE | 2018-08-25 14:25 | NUR ---
PT C/O LEFT ARM PAIN X 1 DAY AND DENIES ANY TRAUMA, THROBBING AND TIGHT PAIN 6/10. PT'S MILD EDEMA +1 NOTICED ON BOTH HANDS. PT STATES HER LEFT ARM PAIN RADIATES TO LEFT UPPER CHEST WITH TIGHTNESS, SOB FOR ONE WEEK, AND MINOR COUGH WITH YELLOWISH SPUTUM DUE TO SMOKING, AND PT STATES SHE NORMALLY HAS COUGH. HX-HEART VALVES LEAKAGE PER PT. DENIES N/V/D; SKIN IS PINK/WARM/DRY; AAOX4 WITH EVEN AND STEADY GAIT; LUNGS CLEAR AND HR EVEN AND REGULAR; PT DENIES ANY FEVER AT THIS TIME; PATIENT STATES PAIN OF 6/10 AT THIS TIME; VSS; PATIENT POSITIONED FOR COMFORT; HOB ELEVATED; BEDRAILS UP X1; BED DOWN. ER MD MADE AWARE OF PT STATUS. PT IS ON MONITOR WITH VSS.
--- NOTE | 2018-08-25 15:41 | NUR ---
PT ASKED FOR BLOOD WORK AND EKG. MADE AWARE.
--- NOTE | 2018-08-25 15:55 | NUR ---
MD IS AT BEDSIDE AND RE-EVALUATING PT.
[2018-08-25 16:22] VITALS: BP 100/55
== END 2018-08-25 16:23 | disposition home or self-care (01) ==
LOC: MED 13:43
DX: S40.022A Contusion of left upper arm, initial encounter (principal); I10 Essential (primary) hypertension; Z86.73 Personal history of transient ischemic attack (TIA), and cerebral infarction without residual deficits; Z86.79 Personal history of other diseases of the circulatory system; Z88.1 Allergy status to other antibiotic agents; Z88.8 Allergy status to other drugs, medicaments and biological substances; Z79.899 Other long term (current) drug therapy; Z87.448 Personal history of other diseases of urinary system; X58.XXXA Exposure to other specified factors, initial encounter; Y93.89 Activity, other specified; Y92.89 Other specified places as the place of occurrence of the external cause; Y99.8 Other external cause status
CPT/HCPCS: 81002; 81025; 93971; 99284; Q0092

== ENCOUNTER 2018-09-08 04:15 | Emergency (ER) | payer OTHER ==
[~2018-09-08] VITALS: Ht 154.9 cm; Wt 90.7 kg
[~2018-09-08 04:15] MED LIST changes: +OXYC40TE66 PO
[2018-09-08 04:20] VITALS: BP 140/90
--- NOTE | 2018-09-08 04:20 | NUR ---
TO BED # 04 AMBULATORY
--- NOTE | 2018-09-08 04:27 | NUR ---
28/F PRESENTS TO ED, C/O L GREATER THAN R HANDS, ARMS AND SHOULDERS TINGLING/NUMBNESS, X2 DAYS. PT ALSO REPORTS NECK PAIN. AOX4, SKIN NORMAL WARM AND DRY, RR EVEN AND UNLABORED. LUNG SOUNDS CLEAR BL. HX "HEART VALVES THAT ARE LEAKY," L EYE PERMANENT FLOATERS, L ARM DVT WITH
[2018-09-08] MEDS ORDERED: hydrOXYzine HCL 25 MG TAB PO ONE (04:35)
[2018-09-08] MEDS ORDERED: IBUPROFEN 600 MG TAB PO ONE (04:35)
--- NOTE | 2018-09-08 04:50 | NUR ---
PT REFUSED ATARAX DESPITE EDUCATION, PT STATED "I DON'T HAVE ANXIETY." ADMINISTERED MOTRIN PO FOR PAIN WITH EDUCATION, PT VERBALIZED UNDERSTANDING, TOLERATED MED WELL.
--- NOTE | 2018-09-08 06:24 | NUR ---
PT LAYING IN BED, RR EVEN AND UNLABORED. REPORTS IMPROVEMENT IN PAIN, 5/10 AT THIS TIME. VSS. ALL NEEDS MET.
[2018-09-08 06:55] VITALS: BP 138/91
--- NOTE | 2018-09-08 06:55 | NUR ---
Patient discharged with v/s stable. Written and verbal after care instructions given and explained. Patient alert, oriented and verbalized understanding of instructions. Ambulatory with steady gait. All questions addressed prior to discharge. ID band removed. Patient advised to follow up with PMD. Rx of ibuprofen, gabapentin given. Patient educated on indication of medication including possible reaction and side effects. Opportunity to ask questions provided and answered.
== END 2018-09-08 06:55 | disposition home or self-care (01) ==
LOC: MED 04:15
DX: M54.12 Radiculopathy, cervical region (principal); I10 Essential (primary) hypertension; F17.210 Nicotine dependence, cigarettes, uncomplicated; Z88.1 Allergy status to other antibiotic agents; Z88.8 Allergy status to other drugs, medicaments and biological substances
CPT/HCPCS: 70450; 72050; 72125; 81025; 99284; Q0092

== ENCOUNTER 2018-09-20 23:29 | Emergency (ER) | payer OTHER ==
[~2018-09-20] VITALS: Ht 154.9 cm; Wt 90.7 kg
[2018-09-20 23:30] VITALS: BP 121/81
--- NOTE | 2018-09-20 23:30 | NUR ---
to bed # 02 ambulatory
--- NOTE | 2018-09-20 23:30 | NUR ---
PT CAME IN WITH C/O headache, tingling on her both arm, legs, back for 5 days, abd pain. PT STATES SHE HAS NO HISTORY BUT SHE IS GOING THROUGH SOME TESTS TO RULE OUT A TUMOR SOMEWHERE ON HER BODY POSSIBLY SPINE. PT REPORTS PAIN AT 10/10. VSS; PATIENT POSITIONED FOR COMFORT; HOB ELEVATED; BEDRAILS UP X2; BED DOWN. ER MD MADE AWARE OF PT STATUS.
[2018-09-21] MEDS ORDERED: LORazepam 2 MG/ML VIAL IVP ONE (00:15)
[2018-09-21] MEDS ORDERED: NACL 0.9% 1,000 ML IV ONE (00:15)
--- NOTE | 2018-09-21 00:41 | NUR ---
PT REFUSED IV AND IV MEDS, DR DEGROOT MADE AWARE.
[2018-09-21 00:42] LABS: BASOPHILS % (AUTO) 0.3 % (0.0-2.0); EOSINOPHILS # (AUTO) 0.3 K/uL (0-0.4); EOSINOPHILS % (AUTO) 3.5 % (0.0-4.0); HEMOGLOBIN 11.4 g/dL (12.0-16.0); LYMPHOCYTES # (AUTO) 4.1 K/uL (2.5-16.5); MEAN CORPUSCULAR HEMOGLOBIN 23 pg (27-31); MEAN CORPUSCULAR HGB CONC 32 g/dL (33-37); MEAN CORPUSCULAR VOLUME 73.7 fL (80-94); MONOCYTES # (AUTO) 0.6 K/uL (0.8-1.0); MONOCYTES % (AUTO) 5.8 % (1.7-9.3); NEUTROPHILS # (AUTO) 4.7 K/uL (1.8-7.7); NEUTROPHILS % (AUTO) 48.4 % (42.2-75.2); PLATELET COUNT (AUTO) 275 K/uL (140-450); RED BLOOD CELL COUNT(AUTO) 4.88 MIL/uL (4.20-5.40); RED CELL DISTRIBUTION WIDTH 18.2 % (11.6-13.7); WHITE BLOOD COUNT (AUTO) 9.7 K/uL (4.8-10.8)
[2018-09-21 00:49] LABS: ANION GAP 12.4 (8-16); CARBON DIOXIDE 27.4 mmol/L (21-32); POTASSIUM 3.8 mmol/L (3.5-5.1)
[2018-09-21 00:55] LABS: ALBUMIN 3.2 g/dL (3.4-5.0); TOTAL BILIRUBIN 0.2 mg/dL (0.0-1.0)
[2018-09-21 00:59] LABS: PROTHROMBIN TIME 9.1 secs (10.8-13.4)
--- NOTE | 2018-09-21 01:35 | NUR ---
Patient tried to go outside to smoke "in the mean time, while lab works on getting results of blood." Spoke to pt regarding no smoking policy and pt returned to bed.
[2018-09-21 01:55] VITALS: BP 111/67
--- NOTE | 2018-09-21 01:55 | NUR ---
Patient discharged with v/s stable. Written and verbal after care instructions given and explained. Ambulatory with steady gait. Patient asked about her lab results and asked for copies of them. Copies of ED labs were given to pt but she refused to sign d/c paperwork. Pt said no one did anything for her because her urine was not even tested, tried to explain her symptoms were not of the /urinary nature and she said "whatever nobody did anything for me." Her /boyfriend then told pt "don't sign anything, that's why our baby , the doctors and nurses don't do anything." tried to go over results with patient but she just refused. Patient left in stable condition, ambulatory, and with her partner.
== END 2018-09-21 01:55 | disposition home or self-care (01) ==
LOC: MED 23:29
DX: R20.0 Anesthesia of skin (principal); R20.2 Paresthesia of skin; R50.9 Fever, unspecified; H57.89 Other specified disorders of eye and adnexa; H93.8X2 Other specified disorders of left ear; K08.89 Other specified disorders of teeth and supporting structures; I10 Essential (primary) hypertension; F17.200 Nicotine dependence, unspecified, uncomplicated; Z79.1 Long term (current) use of non-steroidal anti-inflammatories (NSAID); Z79.899 Other long term (current) drug therapy; Z86.79 Personal history of other diseases of the circulatory system; Z86.73 Personal history of transient ischemic attack (TIA), and cerebral infarction without residual deficits; Z86.69 Personal history of other diseases of the nervous system and sense organs; Z87.448 Personal history of other diseases of urinary system; Z88.1 Allergy status to other antibiotic agents; Z88.8 Allergy status to other drugs, medicaments and biological substances
CPT/HCPCS: 36415; 36600; 80053; 82803; 85025; 85610; 85730; 99283; J2060

== ENCOUNTER 2018-10-06 02:45 | Emergency (ER) | payer OTHER ==
[~2018-10-06] VITALS: Ht 154.9 cm; Wt 86.2 kg
[2018-10-06 02:51] VITALS: BP 141/90
--- NOTE | 2018-10-06 02:51 | NUR ---
to bed #08 ambulatory
--- NOTE | 2018-10-06 02:53 | NUR ---
28 yo female comes to ED for c/o numbness and tingling to hands and feet. Pt states 7/10 sharp pain. Pt also states she has neck pain. Pt amb to gurpriyanka, strong equal strength bilater to upper and lower extrem. +2 peripheral pulses palpable. pt denies sob/cp @ this time. Gurney locked and in lowest position. Will update ERMD. Hx: pt states she has leaky heart valves allergies: cephalexin, reglan lmp: 09/20/18
[2018-10-06] MEDS ORDERED: LORazepam 1 MG TAB PO ONE (03:30)
--- NOTE | 2018-10-06 03:33 | NUR ---
PT REFUSED ATIVAN PO DESPITE EDUCATION, PT STATED "I DON'T HAVE ANXIETY"
[2018-10-06 04:33] VITALS: BP 125/82
--- NOTE | 2018-10-06 04:45 | NUR ---
Patient discharged with v/s stable. Written and verbal after care instructions given and explained by Dr. Chen. Patient verbalized understanding. Ambulatory with steady gait. All questions addressed prior to discharge by Dr. Chen. Advised to follow up with PMD.
== END 2018-10-06 04:23 | disposition home or self-care (01) ==
LOC: MED 02:45
DX: F41.9 Anxiety disorder, unspecified (principal); I10 Essential (primary) hypertension; Z88.1 Allergy status to other antibiotic agents; Z88.8 Allergy status to other drugs, medicaments and biological substances; Z79.899 Other long term (current) drug therapy; Z86.79 Personal history of other diseases of the circulatory system
CPT/HCPCS: 99281; 99284